=== PATIENT | female | born 1955 | race Caucasian/White ===

== ENCOUNTER → 2017-07-07 | Outpatient (CLI) | payer BC ==
--- NOTE | 2017-07-08 08:42 | US ---
EXAMINATION TYPE: US thyroid st tissue head/neck DATE OF EXAM: 07/07/2017 COMPARISON: NONE CLINICAL HISTORY: R22.0 Localized swelling, mass and lump of skin; on Synthroid GLAND SIZE: Right Lobe: 3.6 x 1.3 x 1.4 cm Overall Parenchyma: heterogenous Left Lobe: 4.0 x 1.5 x 1.5 cm Overall Parenchyma: heterogeneous Isthmus Thickness: 0.3 cm NODULES RIGHT: # of nodules measured on right: 0 LEFT: # of nodules measured on left: 1 1. 0.3 X 0.2 x 0.2 cm hyperechoic solid nodule at the mid pole with poorly defined margins. This n odule is wider than tall and shows no intranodular vascularity. ISTHMUS: # of nodules measured in the isthmus: 0 Bilateral neck scanned, no evidence of lymphadenopathy. Ultrasound performed of the thyroid gland. IMPRESSION: Subcentimeter thyroid nodule on the left, correlate for possible thyroiditis.
== END | disposition home or self-care (01) ==
LOC: RADUSWWP 15:39
PROVIDERS: ATTEND Family Medicine
DX: E04.1 Nontoxic single thyroid nodule (principal)
CPT/HCPCS: 76536

== ENCOUNTER → 2018-03-31 | Outpatient (CLI) | payer BC ==
--- NOTE | 2018-03-31 22:58 | US ---
EXAMINATION TYPE: US thyroid st tissue head/neck DATE OF EXAM: 03/31/2018 COMPARISON: Thyroid ultrasound July 07, 2017 CLINICAL HISTORY: E04.1 Nontoxic single thyroid nodule. GLAND SIZE: Right Lobe: 4.1 x 1.2 x 1.0 cm Overall Parenchyma: homogenous Left Lobe: 3.9 x 1.4 x 1.4 cm Overall Parenchyma: homogeneous Isthmus Thickness: 0.2 cm NODULES RIGHT: # of nodules measured on right: 0 LEFT: # of nodules measured on left: 1 1. 0.3 X 0.3 x 0.3 cm echogenic solid nodule at the mid pole with poorly defined margins; . This n odule is wider than tall and shows intranodular vascularity. Prior size: 0.3 x 0.2 x 0.2 cm ISTHMUS: # of nodules measured in the isthmus: 0 Bilateral neck scanned, no evidence of lymphadenopathy. There is small size heterogeneous thyroid with 3 mm hyperechoic left-sided thyroid nodule redemonstra christiano. No new nodules are evident. IMPRESSION: Overall stable findings, no new suspicious nodules noted.
== END | disposition home or self-care (01) ==
LOC: RADUSMAIN 16:42
PROVIDERS: ATTEND Internal Medicine Endocrinology, Diabetes & Metabolism
DX: E04.1 Nontoxic single thyroid nodule (principal)
CPT/HCPCS: 76536

== ENCOUNTER → 2019-02-02 | Outpatient (CLI) | payer BC ==
[2019-02-02 12:51] VITALS: BP 125/83; PULSE 79; RESP 18; TEMP 97.7; BMI 31.4
--- NOTE | 2019-02-02 13:46 | P.HPOB ---
History of Present Illness H&P Date: 02/02/19 Chief Complaint: The patient is here for her routine gynecologic exam and ma mmogram. This is a 63-year-old with an LMP of 2002. The patient is status post total laparoscopic hysterectomy with unilateral oophorectomy done for benign reasons. The patient states she continues to have intermittent left lower quadrant abdominal pains and this has been going on since about 2012. I had previously recommended a pelvic ultrasound when she was seen in 2014, but this was not done. Pains are very similar to the one she had in 2015. Please see the 03/07/2015 H&P. She also has been seen by Dr. Pond, her food sampler, for unexplained anemia. She has had iron infusions on several occasions and has also required blood transfusions. She is otherwise without complaints. Review of Systems The patient has lost 18 pounds over the last 4 years. She denies respiratory, cardiac, or G.I. problems. She denies any blood per rectum. Past Medical History Past Medical History: Asthma, GERD/Reflux, Thyroid Disorder Additional Past Medical History / Comment(s): Unexplained Anemia, hypothyroidism, vitamin D deficiency, OA in hands, knees, bulging discs x 3, asthma as a child. 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 History of Any Multi-Drug Resistant Organisms: None Reported Past Surgical History: Hysterectomy, Tonsillectomy Additional Past Surgical History / Comment(s): Multiple colonoscopies and upper endoscopies (last 2017). HX BLADDER SUSPENSION X 2. Total laparoscopic hysterectomy with unilateral oophorectomy and anterior repair 2002. Past Anesthesia/Blood Transfusion Reactions: No Reported Reaction, Motion Sickness, Postoperative Nausea & Vomiting (PONV) Past Psychological History: Anxiety, Depression Additional Psychological History / Comment(s): Pt resides with her spouse. 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 She enjoys working with children. She is independent. She drives. Smoking Status: Never smoker Past Alcohol Use History: None Reported Past Drug Use History: None Reported Additional History: She has been since 1974. - Past Family History Father Family Medical History: Cancer, Osteoarthritis (OA), Rheumatoid Arthritis (RA) Additional Family Medical History / Comment(s): Father from small cell lung cancer. He had hemachromatosis. Mother Family Medical History: Coronary Artery Disease (CAD) Additional Family Medical History / Comment(s): Mother is 81 yrs old. Mother has had CABG. She has aortic aneurysm. She has osteoporosis. Medications and Allergies Home Medications Medication Instructions Recorded Confirmed Type ALPRAZolam 0.5 mg PO HS 06/08/15 02/02/19 History Ergocalciferol [Vitamin D2] 50,000 unit PO MO 06/08/15 02/02/19 History Estradiol [Vivelle-Dot 0.0375 MG] 1 patch TOPICAL TUTH 06/08/15 02/02/19 History L.acidoph,Paracasei, B.lactis 1 cap PO DAILY 06/08/15 02/02/19 History [Probiotic] Levothyroxine Sodium [Synthroid] 175 mcg PO MOTUWETHFRSA 06/08/15 02/02/19 History Levothyroxine Sodium [Synthroid] 262.5 mcg PO JOVEL 06/08/15 02/02/19 History Multivitamins, Thera [Multivitamin] 1 tab PO DAILY 06/08/15 02/02/19 History Sertraline HCl 50 mg PO DAILY@1800 06/08/15 02/02/19 History Aspirin 81 mg PO DAILY 02/02/19 02/02/19 History Allergies Allergy/AdvReac Type Severity Reaction Status Date / Time levofloxacin [From Levaquin] Allergy Rash/Hives Verified 09/28/18 08:16 sulfamethoxazole Allergy Rash/Hives Verified 09/28/18 08:16 [From Septra] trimethoprim [From Septra] Allergy Rash/Hives Verified 09/28/18 08:16 acetaminophen [From [place]] AdvReac Itching Unverified 02/02/19 12:52 hydrocodone [From [place]] AdvReac Itching Unverified 02/02/19 12:52 tramadol AdvReac Itching Unverified 02/02/19 12:52 Exam Vital Signs Temp Pulse Resp BP Pulse Ox 02/02/19 12:46 97.7 F 79 18 125/83 95 Intake and Output 02/01/19 02/02/19 02/02/19 22:59 06:59 14:59 Other: Weight 88.451 kg Height 5 feet 6 inches, weight 195 pounds, BMI 31.5. This is a well-developed well-nourished white female who is alert and oriented times 3 in no acute distress. HEENT: Within normal limits. NECK: Supple without mass or thyromegaly. CHEST AND LUNGS: Clear to auscultation. HEART: Regular rate and rhythm. BREASTS: Are without mass or discharge. AXILLARY EXAM: Negative for adenopathy. BACK: Negative for CVA tenderness. ABDOMEN: Soft without palpable masses. There is minimal left lower quadrant te nderness without rebound tenderness. The abdomen is nondistended. PELVIC EXAM: External genitalia appears normal with mild atrophy. Vagina appears normal with mild atrophy. There is no evidence of prolapse. Bimanual examination is negative for mass or tenderness. RECTAL EXAM: Rectovaginal exam is negative for mass or tenderness. It is positive for occult blood. EXTREMITIES: Nontender. IMPRESSION: 1. 63-year-old menopausal female status post TLH and unilateral oophorectomy for benign reasons, with normal gynecologic exam. 2. Hemoccult positive stool with no symptoms of blood per rectum per the patient. 3. History of unexplained anemia. This may be related to the Hemoccult positive stool. 4. Intermittent chronic left lower quadrant pains with minimal physical findings at this time.. She does have minimal left lower quadrant tenderness with no tenderness on bimanual examination. PLAN: 1. Pap smears have been discontinued. 2. Self breast awareness was discussed with the patient. 3. Screening mammogram will be done today. 4. Osteoporosis prevention was discussed. I have stressed the importance of adequate calcium, vitamin D and regular exercise. Recommended amounts of calcium and vitamin D were also discussed. I have recommended bone density screening and the order slip was given to the patient for this. 5. Pelvic ultrasound was recommended because of her left lower quadrant abdominal pains. The order slip was given to the patient for this. 6. The patient will follow up with her doctors regarding the Hemoccult positive stool. She will discuss this with her food sampler as well as her primary care physician. They will determine what workup should be done. 7. She was advised to return in one year for her annual well woman exam.
--- NOTE | 2019-02-04 11:01 | MM ---
Reason for exam: screening (asymptomatic). Last mammogram was performed 3 years and 11 months ago. History: Patient is postmenopausal. Took hormonal contraceptives for 18 years. Taking estrogen for 5 years. Physical Findings: A clinical breast exam by your physician is recommended on an annual basis and results should be correlated with mammographic findings. MG 3D Screening Mammo W/Cad Bilateral CC and MLO view(s) were taken. Prior study comparison: March 07, 2015, bilateral MG 3d screening mammo w/cad. March 01, 2014, bilateral MG screening mammo w CAD. The breast tissue is heterogeneously dense. This may lower the sensitivity of mammography. No significant changes when compared with prior studies. ASSESSMENT: Benign, BI-RAD 2 RECOMMENDATION: Routine screening mammogram of both breasts in 1 year.
== END ==
LOC: WWCWWP 12:22
PROVIDERS: ATTEND Obstetrics & Gynecology
DX: Z12.31 Encounter for screening mammogram for malignant neoplasm of breast (principal)
CPT/HCPCS: 77063; 77067

== ENCOUNTER → 2020-04-05 | Outpatient (CLI) | payer BC ==
[2020-04-05 10:56] VITALS: BP 110/73; PULSE 79; RESP 20; TEMP 97.7
--- NOTE | 2020-04-05 11:56 | P.HPOB ---
History of Present Illness H&P Date: 04/05/20 Chief Complaint: The patient is here for her routine gynecologic exam and ma mmogram. This is a 64-year-old with an LMP of 2002. She is status post TLH with unilateral oophorectomy done for benign reasons. She continues to have intermittent left lower quadrant abdominal pains which has been going on since 2013. A pelvic ultrasound has been recommended on several occasions but she has not had this done. Pains feels sharp when she does have them. She states they have really not gotten worse or better over the past several years. She has once been told that it may be a abdominal hernia left side. Review of Systems She has gained about 15 pounds over the past year. She denies respiratory or cardiac problems. GI: Occasional stool incontinence. She denies gross blood in her stool. Past Medical History Past Medical History: Asthma, GERD/Reflux, Thyroid Disorder Additional Past Medical History / Comment(s): Unexplained Anemia requiring transfusions, hypothyroidism, vitamin D deficiency, OA in hands, knees, bulging discs x 3, asthma as a child. 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 History of Any Multi-Drug Resistant Organisms: None Reported Past Surgical History: Hysterectomy, Tonsillectomy Additional Past Surgical History / Comment(s): Multiple colonoscopies and upper endoscopies (last 2017). HX BLADDER SUSPENSION X 2. Total laparoscopic hysterectomy with unilateral oophorectomy and anterior repair 2002. Past Anesthesia/Blood Transfusion Reactions: No Reported Reaction, Motion Sickness, Postoperative Nausea & Vomiting (PONV) Past Psychological History: Anxiety, Depression Additional Psychological History / Comment(s): Pt resides with her spouse. 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 She enjoys working with children. She is independent. She drives. Smoking Status: Never smoker Past Alcohol Use History: None Reported Past Drug Use History: None Reported Additional History: She is but is not sexually active. She has run a daycare business. - Past Family History Father Family Medical History: Cancer, Osteoarthritis (OA), Rheumatoid Arthritis (RA) Additional Family Medical History / Comment(s): Father from small cell lung cancer. He had hemachromatosis. Mother Family Medical History: Coronary Artery Disease (CAD) Additional Family Medical History / Comment(s): Mother has had CABG. She has aortic aneurysm. She has osteoporosis. Medications and Allergies Home Medications Medication Instructions Recorded Confirmed Type ALPRAZolam 0.5 mg PO HS 06/08/15 04/05/20 History Ergocalciferol [Vitamin D2] 50,000 unit PO MO 06/08/15 04/05/20 History Estradiol [Vivelle-Dot 0.0375 MG] 1 patch TOPICAL TUTH 06/08/15 04/05/20 History Levothyroxine Sodium [Synthroid] 175 mcg PO MOTUWETHFRSA 06/08/15 04/05/20 History Multivitamins, Thera [Multivitamin] 1 tab PO DAILY 06/08/15 04/05/20 History Albuterol Nebulized (Conc) 1 ampul INHALATION DIRECTED 02/15/19 04/05/20 History [Ventolin Nebulized (Conc)] Benralizumab [Fasenra] 30 mg SQ QMONTHLY 04/05/20 04/05/20 History Meloxicam [Mobic] 15 mg PO DAILY 04/05/20 04/05/20 History Allergies Allergy/AdvReac Type Severity Reaction Status Date / Time levofloxacin [From Levaquin] Allergy Rash/Hives Verified 04/05/20 10:46 sulfamethoxazole Allergy Rash/Hives Verified 04/05/20 10:46 [From Septra] trimethoprim [From Septra] Allergy Rash/Hives Verified 04/05/20 10:46 acetaminophen [From [place]] AdvReac Itching Verified 04/05/20 10:46 hydrocodone [From [place]] AdvReac Itching Verified 04/05/20 10:46 tramadol AdvReac Itching Verified 04/05/20 10:46 Exam Vital Signs Temp Pulse Resp BP Pulse Ox 04/05/20 10:51 97.7 F 79 20 110/73 94 L Intake and Output 04/04/20 04/05/20 04/05/20 22:59 06:59 14:59 Other: Weight 95.254 kg Height 5 feet 4-1/2 inches, weight 210 pounds, BMI 35.5. This is a well-developed well-nourished heavyset white female who is alert and oriented times 3 in no acute distress. HEENT: Within normal limits. NECK: Supple without mass or thyromegaly. CHEST AND LUNGS: Clear to auscultation. With slight increase expiratory phase breath sounds consistent with asthma. There is no wheezing noted. HEART: Regular rate and rhythm. BREASTS: Are without mass or discharge. AXILLARY EXAM: Negative for adenopathy. BACK: Negative for CVA tenderness. ABDOMEN: Soft, obese, without palpable masses. There is minimal left lower quadrant tenderness without rebound tenderness. There are no palpable masses. PELVIC EXAM: External genitalia appears normal with mild atrophy. Vagina appears normal with mild atrophy. There is no evidence of prolapse. Bimanual examination is negative for mass or tenderness. Bimanual examination is somewhat limited secondary to her size. RECTAL EXAM: Rectovaginal exam is negative for mass or tenderness and is negative for occult blood. EXTREMITIES: Nontender. IMPRESSION: 1. 64-year-old menopausal female status post hysterectomy with unilateral oophorectomy for benign reasons with normal gynecologic exam. 2. Intermittent chronic left lower quadrant abdominal pain with minimal left lower quadrant tenderness and no significant pelvic tenderness. Differential diagnosis will include abdominal hernia, GI pain and less likely, ovarian neoplasm. PLAN: 1. Pap smears have been discontinued. 2. Self breast awareness was discussed with the patient. 3. Screening mammogram will be done today. 4. I have again recommended pelvic ultrasound to rule out an ovarian problem causing her left lower quadrant pain. This has been scheduled for this afternoon. 5. She was advised to return in one year for her annual well woman exam.
--- NOTE | 2020-04-08 14:01 | US ---
EXAMINATION TYPE: US pelvis complete transvag DATE OF EXAM: 04/05/2020 COMPARISON: NONE CLINICAL HISTORY: R10.32 abd pain. left pelvic pain for 4-5 years, hysterectomy - uterus and 1 ovary, patient unsure whether right or left TECHNIQUE: Transvaginal (TV) and Transabdominal (TA) . Transabdominal sonographic images of the pel vis were acquired. Transvaginal sonographic images were medically necessary to better assess the fol lowing anatomy: ovary Date of LMP: unknown EXAM MEASUREMENTS: Uterus: Surgically absent Endometrial Stripe: Surgically absent Right Ovary: unable to visualize Left Ovary: unable to visualize 1. Uterus: Surgically absent 2. Endometrium: Surgically absent 3. Right Ovary: unable to visualize 4. Left Ovary: unable to visualize 5. Bilateral Adnexa: appears wnl Urinary bladder is anechoic. IMPRESSION: No significant abnormality to account for patient's symptoms. Postop changes.
--- NOTE | 2020-04-10 09:34 | MM ---
Reason for exam: screening (asymptomatic). Last mammogram was performed 1 year and 2 months ago. History: Patient is postmenopausal. Took hormonal contraceptives for 18 years. Taking estrogen for 5 years. Physical Findings: A clinical breast exam by your physician is recommended on an annual basis and results should be correlated with mammographic findings. MG Screening Mammo w CAD Bilateral CC and MLO view(s) were taken. Prior study comparison: February 02, 2019, bilateral MG 3d screening mammo w/cad. March 07, 2015, bilateral MG 3d screening mammo w/cad. There are scattered fibroglandular densities. Left upper outer quadrant grouped calcifications likely dystrophic show minimal increase from 02/02/19. Precautionary 6 month follow up recommended. Bilateral focal asymmetries are unchanged. ASSESSMENT: Probably benign, BI-RAD 3 RECOMMENDATION: Follow-up diagnostic mammogram of the left breast in 6 months. JUAN MANUEL
--- NOTE | 2020-04-11 09:23 | P.PN ---
Progress Note - Text Progress Note Date: 04/11/20 OUTPATIENT FOLLOW-UP NOTE TEST(S)/RESULTS: Test results from 04/05/2020 include negative pelvic ultrasound and mammogram which is read as probably benign and short-term six-month left diagnostic mammogram is recommended. METHOD OF NOTIFICATION: Patient was notified by phone. PATIENT COMMENTS: DIAGNOSIS: Negative pelvic ultrasound. Probably benign mammogram recommending short-term six-month diagnostic mammogram follow-up of the left DISCUSSION: She was notified that I do not feel her intermittent left lower quadrant pains are gynecologic in nature. PLAN: The order slip for the six-month left diagnostic mammogram will be mailed to the patient. The patient will follow up with her PCP if she continues to have left lower quadrant pains.
== END | disposition home or self-care (01) ==
LOC: WWCWWP 10:28
PROVIDERS: ATTEND Obstetrics & Gynecology
DX: Z12.31 Encounter for screening mammogram for malignant neoplasm of breast (principal); R10.32 Left lower quadrant pain; Z90.710 Acquired absence of both cervix and uterus
CPT/HCPCS: 76830; 76856; 77067

== ENCOUNTER → 2020-06-01 | Outpatient (CLI) | payer BC | END | disposition home or self-care (01) | LOC: LABWHC1 15:31 | PROVIDERS: ATTEND Internal Medicine Endocrinology, Diabetes & Metabolism | DX: E04.1 Nontoxic single thyroid nodule (principal); E55.9 Vitamin D deficiency, unspecified | CPT/HCPCS: 36415; 82306; 84439; 84443 ==

== ENCOUNTER → 2021-05-15 | Outpatient (CLI) | payer MEDICARE, OTHER ==
--- NOTE | 2021-05-16 12:05 | MM ---
Reason for exam: screening (asymptomatic). Last mammogram was performed 1 year and 1 month ago. History: Patient is postmenopausal. Took hormonal contraceptives for 18 years. Took estrogen for 5 years beginning at age 65. Physical Findings: A clinical breast exam by your physician is recommended on an annual basis and results should be correlated with mammographic findings. MG Screening Mammo w CAD Bilateral CC and MLO view(s) were taken. Prior study comparison: April 05, 2020, bilateral MG screening mammo w CAD. February 02, 2019, bilateral MG 3d screening mammo w/cad. There are scattered fibroglandular densities. Course grouped calcifications left upper outer quadrant unchanged from last year compatible with benign calcifications. No significant changes when compared with prior studies. ASSESSMENT: Benign, BI-RAD 2 RECOMMENDATION: Routine screening mammogram of both breasts in 1 year.
== END | disposition home or self-care (01) ==
LOC: RADMAMWWP 14:38
PROVIDERS: ATTEND Family Medicine
DX: Z12.31 Encounter for screening mammogram for malignant neoplasm of breast (principal); Z78.0 Asymptomatic menopausal state
CPT/HCPCS: 77067

== ENCOUNTER → 2021-08-01 | Outpatient (CLI) | payer MEDICARE ==
--- NOTE | 2021-08-01 15:54 | NM ---
EXAMINATION TYPE: NM GI bleeding DATE OF EXAM: 08/01/2021 HISTORY: Gastrointestinal bleeding COMPARISON: NONE Following administration of 3 ml PYP 20.2 mCi Tc 99m Sodium Pertechnete. Immediate images post inject ion. FINDINGS: Normal tracer activity is seen in the blood pool of the abdominal aorta, common iliac arteries, femor al arteries, liver, and spleen on all of the interval images. Later images show accumulation of trace r in the urinary bladder, which is consistent with excreted tracer. No abnormal tracer uptake is pres ent outside the blood pool that would be consistent with an active GI bleed. IMPRESSION: Negative examination. No evidence of active gastrointestinal bleeding during the initial 1 hr observa tion period.
== END | disposition home or self-care (01) ==
LOC: RADNMMAIN 12:42
PROVIDERS: ATTEND Family Medicine
DX: K92.2 Gastrointestinal hemorrhage, unspecified (principal)
CPT/HCPCS: 78278; A9512; A9560

== ENCOUNTER → 2021-10-25 | Outpatient (CLI) | payer MEDICARE | END | disposition home or self-care (01) | LOC: LABWHC1 13:22 | PROVIDERS: ATTEND Internal Medicine Endocrinology, Diabetes & Metabolism | DX: E03.8 Other specified hypothyroidism (principal); E55.9 Vitamin D deficiency, unspecified | CPT/HCPCS: 36415; 82306; 84443 ==

== ENCOUNTER → 2022-02-06 | Outpatient (CLI) | payer MEDICARE ==
[2022-02-06 18:37] LABS: HCT 44.1 % (37.2-46.3); HGB 14.7 g/dL (12.0-15.0); MCH 29.2 pg (27.0-32.0); MCHC 33.3 g/dL (32.0-37.0); MCV 87.5 fL (80.0-97.0); Mean Platelet Volume 10.1 fL (9.5-12.2); NRBC Per 100 WBC 0 /100 WBCS (0.0-0.0); Platelet Count 218 X 10*3/uL (140-440); RBC 5.04 X 10*6/uL (4.10-5.20); WBC 5.77 X 10*3/uL (4.50-10.00)
[2022-02-06 19:21] LABS: African American GFR (CKD) 97.4 (60.0-200.0); Albumin 4.1 g/dL (3.8-4.9); Albumin/Globulin Ratio 1.32 (1.60-3.17); Anion Gap 7.7 mmol/L (10.00-18.00); BUN/Creat Ratio 17.5 Ratio (12.00-20.00); Calcium 9.2 mg/dL (8.7-10.3); Carbon Dioxide 29.5 mmol/L (20.0-27.5); Globulin 3.1 g/dL (1.6-3.3); Potassium 3.9 mmol/L (3.5-5.5); Total Bilirubin 0.5 mg/dL (0.30-1.20); Total Protein 7.1 g/dL (6.2-8.2)
== END | disposition home or self-care (01) ==
LOC: LABWHC1 12:06
PROVIDERS: ATTEND Family Medicine
DX: Z00.00 Encounter for general adult medical examination without abnormal findings (principal); E03.9 Hypothyroidism, unspecified; D50.9 Iron deficiency anemia, unspecified
CPT/HCPCS: 36415; 80053; 82306; 83036; 84443; 85027; 87086

== ENCOUNTER → 2022-08-22 | Outpatient (CLI) | payer MEDICARE ==
[2022-08-22 15:51] LABS: Basophils # (A) 0.01 X 10*3/uL (0.00-0.10); Basophils % (A) 0.1 %; Eosinophils # (A) 0 X 10*3/uL (0.04-0.35); Eosinophils % (A) 0 %; HCT 47.5 % (37.2-46.3); HGB 15.1 g/dL (12.0-15.0); Immature Grans, Automated 0.2 %; Lymphocytes # (A) 2.76 X 10*3/uL (0.90-5.00); Lymphocytes % (A) 30.8 %; MCH 28.5 pg (27.0-32.0); MCHC 31.8 g/dL (32.0-37.0); MCV 89.6 fL (80.0-97.0); Mean Platelet Volume 11.2 fL (9.5-12.2); Monocytes # (A) 0.62 X 10*3/uL (0.20-1.00); Monocytes % (A) 6.9 %; NRBC Per 100 WBC 0 /100 WBCS (0.0-0.0); Neutrophils # (A) 5.55 X 10*3/uL (1.80-7.70); Platelet Count 210 X 10*3/uL (140-440); RDW 14.1 % (11.5-14.5); WBC 8.96 X 10*3/uL (4.50-10.00)
[2022-08-22 16:27] LABS: ALT 36 U/L (8-44); AST 24 U/L (13-35); Albumin 4.1 g/dL (3.8-4.9); Albumin/Globulin Ratio 1.37 (1.60-3.17); Alkaline Phosphatase 180 U/L (41-126); BUN/Creat Ratio 14.63 Ratio (12.00-20.00); Blood Urea Nitrogen 11.7 mg/dL (9.0-27.0); Calcium 9.8 mg/dL (8.7-10.3); Carbon Dioxide 25.2 mmol/L (20.0-27.5); Chloride 103 mmol/L (96-109); Chol/HDL Ratio 2.72 Ratio; Glucose 90 mg/dL (70-110); LDL Cholesterol,Calculated 98.3 mg/dL (0.0-131.0); Non-African American GFR(CKD) 76.8 (60.0-200.0); Potassium 4.1 mmol/L (3.5-5.5); Sodium 141 mmol/L (135-145); Total Protein 7.1 g/dL (6.2-8.2); VLDL Calculation 16.88 mg/dL (5.00-40.00)
[2022-08-23 03:56] LABS: Appearance,Urine Clear (Clear); Bilirubin,Urine Negative (Negative); Blood,Urine Negative (Negative); Color,Urine Yellow (Yellow); Ketones,Urine Negative (Negative); Nitrite,Urine Negative (Negative); PH, Urine 5.5 (5.0-8.0); Specific Gravity,Urine 1.017 (1.001-1.030); Urobilinogen,Urine 0.2 (0.2,1.0)
[2022-08-23 04:08] LABS: Bacteria,Urine None Seen /HPF (None Seen)
== END | disposition home or self-care (01) ==
LOC: LABWHC1 11:21
PROVIDERS: ATTEND Family Medicine
DX: Z00.00 Encounter for general adult medical examination without abnormal findings (principal); I10 Essential (primary) hypertension; E03.8 Other specified hypothyroidism
CPT/HCPCS: 36415; 80053; 80061; 81001; 83036; 84443; 85025

== ENCOUNTER → 2022-11-06 | Outpatient (CLI) | payer MEDICARE ==
--- NOTE | 2022-11-06 13:19 | USB ---
Reason for Exam: Additional evaluation requested from abnormal screening. Patient History: Menarche at age 13. First Full-Term at age 20. Left ovary removed at age 49. Right ovary removed at age 49. Hysterectomy at age 49. Postmenopausal. Estrogen for 5 years from age 49 until age 54. Patient used Hormonal Contraceptives for 18 years. Risk Values: Ericka 5 year model risk: 1.5%. NCI Lifetime model risk: 5.4%. Prior Study Comparison: 04/05/2020 Bilateral Screening Mammogram, [facility]. 05/15/2021 Bilateral Screening Mammogram, [facility]. 11/01/2022 Bilateral MG 3D screening mammo w/cad, [facility]. Findings: Imaged: Ultrasound imaging of: Area of concern, retroareolar region and axilla. Right breast 10:00 10 cm from the nipple suspected lymph node with fatty hilum which is seen dating back to 2014 on prior mammograms. No evidence for organizing fluid collection or mass. Overall Assessment: Benign, BI-RAD 2 Management: Screening Mammogram of both breasts in 1 year. A clinical breast exam by your physician is recommended on an annual basis and results should be correlated with mammographic findings. This exam should not preclude additional follow-up of suspicious palpable abnormalities. Results were given to the patient verbally at the time of exam. Electronically signed and approved by: Rob Gonzalez DO
== END | disposition home or self-care (01) ==
LOC: RADUSWWP 12:48
PROVIDERS: ATTEND Internal Medicine Endocrinology, Diabetes & Metabolism
DX: R92.8 Other abnormal and inconclusive findings on diagnostic imaging of breast (principal); Z78.0 Asymptomatic menopausal state

== ENCOUNTER → 2023-02-01 | Outpatient (CLI) | payer MEDICARE ==
[2023-02-01 14:22] LABS: T4, Free (Free Thyroxine) 0.82 ng/dL (0.80-1.80)
== END | disposition home or self-care (01) ==
LOC: LABWHC1 09:31
PROVIDERS: ATTEND Internal Medicine Endocrinology, Diabetes & Metabolism
DX: E04.1 Nontoxic single thyroid nodule (principal)
CPT/HCPCS: 36415; 84439; 84443

== ENCOUNTER → 2023-05-08 | Outpatient (CLI) | payer MEDICARE | END | disposition home or self-care (01) | LOC: LABWHC1 09:03 | PROVIDERS: ATTEND Internal Medicine Endocrinology, Diabetes & Metabolism | DX: E04.1 Nontoxic single thyroid nodule (principal) | CPT/HCPCS: 36415; 84439; 84443 ==

== ENCOUNTER → 2023-08-07 | Outpatient (CLI) | payer MEDICARE ==
--- NOTE | 2023-08-07 15:03 | US ---
EXAMINATION TYPE: US thyroid st tissue head/neck DATE OF EXAM: 08/07/2023 COMPARISON: NONE CLINICAL INDICATION: Female, 67 years old with history of E03.8,E04.1 NONTOXIC SINGLE THYROID NODULE; Patient denies any signs or symptoms GLAND SIZE: Right Lobe: 4.1 x 1.5 x 1.0 cm Overall Parenchyma: homogeneous Left Lobe: 4.3 x 1.6 x 1.3 cm Overall Parenchyma: homogeneous Isthmus Thickness: 0.1 cm NODULES RIGHT: # of nodules measured on right: 0 LEFT: # of nodules measured on left: 1 1. 0.5 X 0.6 x 0.4 cm, upper medial, solid or almost completely solid, hyperechoic nodule, which is taller than wide, with ill-defined margins, without echogenic foci. Prior size: 0.3 x 0.4 x 0.3 cm Few subcentimeter cystic structures noted. ISTHMUS: # of nodules measured in the isthmus: 0 Bilateral neck scanned, hypoechoic round lymph nodes noted left lateral neck IMPRESSION: Left thyroid nodule which has grown in the interval from 0.3 x 0.4 x 0.3 cm to 0.5 x 0.6 x 0.4 cm. It is taller than wide hyperechoic and almost completely solid and is therefore a TR 5 nodule. Follow-u p in 6 months is recommended. 2017 ACR TI-RADS LEVEL: 5 *Highest TI-RADS level nodule reported
== END | disposition home or self-care (01) ==
LOC: RADUSWWP 12:12
PROVIDERS: ATTEND Internal Medicine Endocrinology, Diabetes & Metabolism
DX: E04.1 Nontoxic single thyroid nodule (principal); E03.8 Other specified hypothyroidism
CPT/HCPCS: 76536

== ENCOUNTER → 2023-09-18 | Outpatient (CLI) | payer MEDICARE | END | disposition home or self-care (01) | LOC: LABWHC1 14:32 | PROVIDERS: ATTEND Internal Medicine Endocrinology, Diabetes & Metabolism | DX: E03.8 Other specified hypothyroidism (principal) | CPT/HCPCS: 36415; 84443 ==

== ENCOUNTER → 2023-11-03 | Outpatient (CLI) | payer MEDICARE ==
--- NOTE | 2023-11-04 12:48 | MM ---
Reason for Exam: Screening (asymptomatic). Last screening mammogram was performed 12 month(s) ago. Patient History: Menarche at age 13. First Full-Term at age 20. Left ovary removed at age 49. Right ovary removed at age 49. Hysterectomy at age 49. Postmenopausal. Estrogen for 5 years from age 49 until age 54. Patient used Hormonal Contraceptives for 18 years. Risk Values: Ericka 5 year model risk: 1.5%. NCI Lifetime model risk: 5.2%. Prior Study Comparison: 04/05/2020 Bilateral Screening Mammogram, [facility]. 05/15/2021 Bilateral Screening Mammogram, [facility]. 11/01/2022 Bilateral MG 3D screening mammo w/cad, [facility]. Tissue Density: The breasts are heterogeneously dense, which may obscure small masses. Findings: Analyzed By CAD. There is no suspicious group of microcalcifications or new suspicious mass in either breast. Overall Assessment: Benign, BI-RAD 2 Management: Screening Mammogram of both breasts in 1 year. . Patient should continue monthly self-breast exams. A clinical breast exam by your physician is recommended on an annual basis. This exam should not preclude additional follow-up of suspicious palpable abnormalities. Note on Ericka scores and lifetime risk: 1. A Ericka score greater than 3% is considered moderate risk. If this is the case, consider specialist referral to assess eligibility for a risk reducing agent. 2. If overall lifetime risk for the development of breast cancer is 20% or higher, the patient may qualify for future screening with alternating mammogram and breast MRI. Electronically signed and approved by: Cliff Castorena M.D. Radiologis
== END | disposition home or self-care (01) ==
LOC: RADMAMWWP 11:07
PROVIDERS: ATTEND Family Medicine
DX: Z12.31 Encounter for screening mammogram for malignant neoplasm of breast (principal); R92.333 Mammographic heterogeneous density, bilateral breasts; Z78.0 Asymptomatic menopausal state
CPT/HCPCS: 77063; 77067

== ENCOUNTER → 2024-01-15 | Outpatient (CLI) | payer MEDICARE ==
[2024-01-15 22:02] LABS: T4, Free (Free Thyroxine) 0.75 ng/dL (0.80-1.80)
== END | disposition home or self-care (01) ==
LOC: LABWHC1 12:27
PROVIDERS: ATTEND Internal Medicine Endocrinology, Diabetes & Metabolism
DX: E04.1 Nontoxic single thyroid nodule (principal); E03.8 Other specified hypothyroidism
CPT/HCPCS: 36415; 84439; 84443

== ENCOUNTER → 2024-03-16 | Outpatient (CLI) | payer MEDICARE ==
--- NOTE | 2024-03-16 14:12 | XR ---
EXAMINATION TYPE: XR wrist complete LT DATE OF EXAM: 03/16/2024 1:02 PM COMPARISON: None CLINICAL INDICATION: Female, 68 years old with history of S62.90XA Rule out fracture; PHH, pain TECHNIQUE: XR wrist complete LT; examined in the Frontal, navicular, lateral, and oblique. FINDINGS: No acute osseous pathology, joint dislocation, or joint effusion. No evidence of any soft tissue swelling is seen. IMPRESSION: No acute osseous pathology. [facility], , 03/16/2024 2:09 PM
== END | disposition home or self-care (01) ==
LOC: RADXRMAIN 12:20
PROVIDERS: ATTEND Family Medicine
DX: M25.532 Pain in left wrist (principal)

== ENCOUNTER → 2024-03-29 | Outpatient (CLI) | payer MEDICARE ==
--- NOTE | 2024-03-29 13:35 | CT ---
EXAMINATION TYPE: CT lumbar spine wo con CT DLP: 936.50 mGycm, Automated exposure control for dose reduction was used. DATE OF EXAM: 03/29/2024 1:28 PM COMPARISON: None. CLINICAL INDICATION:Female, 68 years old with history of M54.5 lumbago; PHH, RECENT FALL, LEFT HIP PA IN, PAIN TECHNIQUE: Multiple axial images were obtained from the midportion of T11 through the sacroiliac justine nts. Soft tissue and bone windows in coronal and sagittal planes were obtained and reviewed. Contrast used: none. Oral contrast used: Yes. FINDINGS: Alignment: There are 5 lumbar type vertebral bodies. Grade 1 anterolisthesis at L4 on L5 without evid ence of pars defects. Bone: No evidence of fracture is identified. Degenerative changes of the bilateral SI joints. Discs: T12-L1: No spinal canal or neural foraminal stenosis is identified. L1-L2: No spinal canal or neural foraminal stenosis is identified. L2-L3: No spinal canal or neural foraminal stenosis is identified. L3-L4: No spinal canal or neural foraminal stenosis is identified. L4-L5: Grade 1 anterolisthesis with uncovering of the disc. Bilateral facet arthropathy. No neural fo raminal stenosis is identified. L5-S1: Bilateral facet arthropathy. No spinal canal or neural foraminal stenosis is identified. Other: None IMPRESSION: 1. No evidence for acute spinal fracture. 2. No significant spinal canal or neural foraminal stenosis. 3. Grade 1 anterolisthesis at L4 on L5 without evidence of pars defects. [facility], , 03/29/2024 1:32 PM
--- NOTE | 2024-03-29 13:41 | CT ---
EXAMINATION TYPE: CT abdomen pelvis wo con CT DLP: 936.50 mGycm, Automated exposure control for dose reduction was used. DATE OF EXAM: 03/29/2024 1:28 PM COMPARISON: CT lumbar spine of the same date, pelvic ultrasound 04/05/2020 CLINICAL INDICATION:Female, 68 years old with history of R10.9 abd/pelvic pain; RECENT FALL, LEFT HIP PAIN, PAIN TECHNIQUE: Standard CT of the abdomen and pelvis following the administration of oral contrast. Cor onal and sagittal reformats were performed. FINDINGS: Limited examination due to lack of intravenous contrast. LOWER CHEST: Visualized lung bases are clear. ABDOMEN LIVER: Couple of hepatic cysts with largest within the right hepatic dome measuring up to 4.8 cm. GALLBLADDER AND BILE DUCTS: Unremarkable noncontrast appearance. PANCREAS: Midportion is demonstrated within a large hiatal hernia. No periaortic calcifications or du ct dilatation. No surrounding fluid collections. SPLEEN: Unremarkable noncontrast appearance ADRENAL GLANDS: Unremarkable noncontrast appearance. KIDNEYS AND URETERS: No evidence of hydronephrosis or renal calculus. PELVIS BLADDER: Incompletely distended but grossly unremarkable. REPRODUCTIVE: The uterus is surgically absent. ABDOMEN & PELVIS STOMACH AND BOWEL: Large hiatal hernia containing at least half the stomach intrathoracic and the mid portion of the pancreas.Enteric contrast reaches the ascending colon. Mild colonic stool burden. The appendix is within normal limits. No focal bowel wall thickening or surrounding inflammatory changes. No evidence of bowel obstruction. PERITONEUM: No evidence of pneumoperitoneum or free fluid. VASCULATURE: No evidence of aortic aneurysm. Pelvic phleboliths. Peripherally calcified 1 cm splenic artery aneurysm. MUSCULOSKELETAL: Acute minimally displaced left inferior pubic rami fracture. Grade 1 anterolisthesis of L4 on L5 without pars defects. LYMPH NODES: No gross evidence for lymphadenopathy. SOFT TISSUE/ABDOMINAL WALL: Tiny fat filled umbilical hernia. IMPRESSION: 1. Acute minimally displaced left inferior pubic rami fracture. 2. Large hiatal hernia containing at least half the stomach intrathoracically and the midportion of t he pancreas. 3. Peripherally calcified 1 cm splenic artery aneurysm. [facility], , 03/29/2024 1:39 PM
== END | disposition home or self-care (01) ==
LOC: RADCTMAIN 11:25
PROVIDERS: ATTEND Family Medicine
DX: S32.592A Other specified fracture of left pubis, initial encounter for closed fracture (principal); M43.16 Spondylolisthesis, lumbar region; K44.9 Diaphragmatic hernia without obstruction or gangrene; I72.8 Aneurysm of other specified arteries
CPT/HCPCS: 72131; 74176

== ENCOUNTER → 2024-08-30 | Outpatient (CLI) | payer MEDICARE ==
[2024-08-30 17:25] LABS: T4, Free (Free Thyroxine) 1.26 ng/dL (0.80-1.80)
== END | disposition home or self-care (01) ==
LOC: LABWHC1 08:23
PROVIDERS: ATTEND Internal Medicine Endocrinology, Diabetes & Metabolism
DX: E04.1 Nontoxic single thyroid nodule (principal); E55.9 Vitamin D deficiency, unspecified
CPT/HCPCS: 36415; 82306; 84439; 84443

== ENCOUNTER → 2024-11-10 | Outpatient (CLI) | payer MEDICARE ==
--- NOTE | 2024-11-10 16:18 | MM ---
Reason for Exam: Screening (asymptomatic). Last screening mammogram was performed 12 month(s) ago. Patient History: Menarche at age 13. First Full-Term at age 20. Left ovary removed at age 49. Right ovary removed at age 49. Hysterectomy at age 49. Postmenopausal. Estrogen for 5 years from age 49 until age 54. Patient used Hormonal Contraceptives for 18 years. Risk Values: Ericka 5 year model risk: 1.5%. NCI Lifetime model risk: 5.0%. Prior Study Comparison: 05/15/2021 Bilateral Screening Mammogram, [facility]. 11/01/2022 Bilateral MG 3D screening mammo w/cad, [facility]. 11/03/2023 Bilateral MG 3D screening mammo w/cad, [facility]. Tissue Density: There are scattered areas of fibroglandular density. Findings: Analyzed By CAD. Asymmetric density inferior left MLO view anterior to middle depth is more pronounced. Further evaluation is recommended. Chronic nodularity on the right and unchanged grouped calcifications posterior upper outer quadrant left breast. Otherwise, no significant change. Overall Assessment: Incomplete: need additional imaging evaluation, BI-RAD 0 Management: Special View Mammogram of the left breast. [facility] will attempt to contact patient to return for supplemental views and ultrasound if indicated. [facility], , 11/10/2024 4:15 PM. Electronically signed and approved by: Farhad Gupta M.D. Radiologist
--- NOTE | 2024-11-10 16:33 | BD ---
EXAMINATION TYPE: Axial Bone Density DATE OF EXAM: 11/10/2024 CLINICAL HISTORY: 68 years old Female. ICD-10 CODE: Z780 POST ЕКАТЕРИНА WITHOUT HRT , Additional History: Height: 65 Weight: 201 FRAX RISK QUESTIONS: Family History (Parent hip fracture): no History of Fracture in Adulthood: no Secondary Osteoporosis: yes 3. Menopause before 45 years old yes RISK FACTORS HISTORY OF: Surgery to Spine/Hip(right/left)/Wrist (right/left): no MEDICATIONS: Thyroid Medications: yes Which medication: Synthroid How Lon+ years Osteoporosis Medications: no EXAM MEASUREMENTS: Bone mineral densitometry was performed using the [employer] System. Bone mineral density as measured about the Lumbar spine is: ----- L1-L4(G/cm2): 1.093 T Score Values are as follows: ----- L1: -1.3 ----- L2: -0.6 ----- L3: -0.6 ----- L4: -0.6 ----- L1-L4: -0.7 Z Score Values are as follows: ----- L1: -0.6 ----- L2: 0.1 ----- L3: 0.1 ----- L4: 0.2 ----- L1-L4: 0.1 Bone mineral density has: Decreased -1.3% since study of: 11/01/2022 Bone mineral density about the R hip (g/cm2): 0.831 Bone mineral density about the L hip (g/cm2): 0.827 T Score values are as follows: -----R Neck: -2.1 -----L Neck: -2.0 -----R Total: -1.4 -----L Total: -1.4 Z Score values are as follows: -----R Neck: -1.0 -----L Neck: -0.9 -----R Total: -0.6 -----L Total: -0.7 Bone mineral density has: Increased 5.9% since study of: 11/01/2022 FRAX%s: The graph provided illustrates a 11.5% chance for a major osteoporotic fx and a 2.2% chance f or the hips probability for fx in 10 years time. IMPRESSION: Osteopenia (T Score between -2.5 and -1). There is slightly increased risk of fracture and the patient may be considered for treatment. Re-Screen 2-5 years. NOTE: T-SCORE=SD OF THE YOUNG ADULT MEAN. [facility], Workstation: 3, 11/10/2024 4:30 PM
== END | disposition home or self-care (01) ==
LOC: RADMAMWWP 09:50
PROVIDERS: ATTEND Family Medicine
DX: Z12.31 Encounter for screening mammogram for malignant neoplasm of breast (principal); R92.323 Mammographic fibroglandular density, bilateral breasts; R92.1 Mammographic calcification found on diagnostic imaging of breast; M85.89 Other specified disorders of bone density and structure, multiple sites; Z78.0 Asymptomatic menopausal state; Z92.0 Personal history of contraception
CPT/HCPCS: 77067; 77080

== ENCOUNTER → 2024-11-11 | Outpatient (CLI) | payer MEDICARE ==
--- NOTE | 2024-11-11 13:50 | MM ---
Reason for Exam: Additional evaluation requested from abnormal screening. Last screening mammogram was performed less than 1 month ago. Patient History: Menarche at age 13. First Full-Term at age 20. Left ovary removed at age 49. Right ovary removed at age 49. Hysterectomy at age 49. Postmenopausal. Estrogen for 5 years from age 49 until age 54. Patient used Hormonal Contraceptives for 18 years. Risk Values: Ericka 5 year model risk: 1.5%. NCI Lifetime model risk: 5.0%. Prior Study Comparison: 11/01/2022 Bilateral MG 3D screening mammo w/cad, [facility]. 11/03/2023 Bilateral MG 3D screening mammo w/cad, [facility]. 11/10/2024 Bilateral MG screening mammo w CAD, [facility]. Tissue Density: Left: There are scattered areas of fibroglandular density. Findings: Analyzed By CAD. 1.7 cm area of asymmetric density just below the retroareolar plane anterior left breast incompletely disperses. This may represent a focal patch of dense tissue but can be further evaluated with ultrasound. Overall Assessment: Incomplete: need additional imaging evaluation, BI-RAD 0 Management: Diagnostic Breast Ultrasound of the left breast. [facility], , 11/11/2024 1:47 PM. Electronically signed and approved by: Farhad Gupta M.D. Radiologist
--- NOTE | 2024-11-11 18:10 | USB ---
Reason for Exam: Additional evaluation requested from abnormal screening. Patient History: Menarche at age 13. First Full-Term at age 20. Left ovary removed at age 49. Right ovary removed at age 49. Hysterectomy at age 49. Postmenopausal. Estrogen for 5 years from age 49 until age 54. Patient used Hormonal Contraceptives for 18 years. Risk Values: Ericka 5 year model risk: 1.5%. NCI Lifetime model risk: 5.0%. Technique: Method: Targeted. Prior Study Comparison: 11/01/2022 Bilateral MG 3D screening mammo w/cad, [facility]. 11/03/2023 Bilateral MG 3D screening mammo w/cad, [facility]. 11/10/2024 Bilateral MG screening mammo w CAD, [facility]. Findings: The lateral section of the breast of the right breast, the lower section of the breast of the left breast, the axilla of the left breast and the retroareolar of the left breast were scanned. Targeted ultrasound 1:00 to 9:00 including scanning of the subareolar region and axilla. There is no solid or cystic lesion or axillary adenopathy. Mammographic finding suspected focal patch of fibroglandular tissue. Precautionary 6 month follow-up mammogram recommended. Overall Assessment: Probably benign, BI-RAD 3 Management: Diagnostic Mammogram of the left breast in 6 months. A clinical breast exam by your physician is recommended on an annual basis and results should be correlated with mammographic findings. This exam should not preclude additional follow-up of suspicious palpable abnormalities. Results were given to the patient verbally at the time of exam. [facility], , 11/11/2024 4:31 PM. Electronically signed and approved by: Farhad Gupta M.D. Radiologist
== END | disposition home or self-care (01) ==
LOC: RADMAMWWP 13:18
PROVIDERS: ATTEND Family Medicine
DX: R92.8 Other abnormal and inconclusive findings on diagnostic imaging of breast (principal); R92.322 Mammographic fibroglandular density, left breast; Z78.0 Asymptomatic menopausal state; Z92.0 Personal history of contraception
CPT/HCPCS: 77065; 76642; G0279; 77061